=== PATIENT | male | born 1945 | race Caucasian/White ===

== ENCOUNTER 2018-03-24 10:11 | Inpatient (IN) | payer MEDICAID ==
[2018-03-24 11:03] LABS: ADD MAN DIFF? NO
[2018-03-24 11:09] LABS: BASOPHILS % 0.2 % (0.0-2.0); EOSINOPHILS % 0.2 % (0.0-7.0); HEMATOCRIT 31.3 % (42.0-52.0); HEMOGLOBIN 10.1 g/dl (14.0-18.0); LYMPHOCYTES % 14.8 % (15.0-51.0); MEAN CORPUSCULAR HEMOGLOBIN 30.7 pg (29.0-33.0); MEAN CORPUSCULAR HGB CONC 32.3 g/dl (32.0-37.0); MEAN CORPUSCULAR VOLUME 95.1 fl (82.0-101.0); MONOCYTE # 0.7 10^3/ul (0.3-0.9); MONOCYTES % 10.4 % (0.0-11.0); NEUTROPHIL # 4.9 10^3/ul (1.6-7.5); NEUTROPHILS % 74.1 % (39.0-77.0); PLATELET COUNT 197 10^3/UL (140-415); RED BLOOD COUNT 3.29 10^6/ul (4.70-6.10); RED CELL DISTRIBUTION WIDTH 13.5 % (11.5-14.5)
[2018-03-24 11:09] LABS: WHITE BLOOD COUNT 6.6 10^3/ul (4.8-10.8)
[2018-03-24 11:23] LABS: ALANINE AMINOTRANSFERASE 15 IU/L (13-69); ALBUMIN 4.3 g/dl (3.3-4.9); ALKALINE PHOSPHATASE 103 IU/L (42-121); ANION GAP 11 (5-13); ASPARTATE AMINO TRANSFERASE 23 IU/L (15-46); BILIRUBIN,INDIRECT 0.3 mg/dl (0-1.1); BILIRUBIN,TOTAL 0.3 mg/dl (0.2-1.3); BLOOD UREA NITROGEN 20 mg/dl (7-20); CALCIUM 9.4 mg/dl (8.4-10.2); CARBON DIOXIDE 27 mmol/L (21-31); CHLORIDE 101 mmol/L (97-110); CREATININE 0.93 mg/dl (0.61-1.24); GLUCOSE 134 mg/dl (70-220); POTASSIUM 4.5 mmol/L (3.5-5.1); SODIUM 139 mmol/L (135-144); TOTAL PROTEIN 8.2 g/dl (6.1-8.1)
[2018-03-24 11:34] LABS: ADD UMIC YES; TROPONIN-I 0.037 ng/ml (0.000-0.120); UR ASCORBIC ACID NEGATIVE (NEGATIVE); UR BILIRUBIN (Dip) NEGATIVE (NEGATIVE); UR BLOOD (Dip) 2+ mg/dL (NEGATIVE); UR CLARITY CLEAR (CLEAR); UR COLOR YELLOW (YELLOW); UR GLUCOSE (Dip) NEGATIVE (NEGATIVE); UR KETONES (Dip) TRACE mg/dL (NEGATIVE); UR LEUKOCYTE ESTERASE (Dip) NEGATIVE Leu/ul (NEGATIVE); UR NITRITE (Dip) NEGATIVE (NEGATIVE); UR RBC 14 /HPF (0-5); UR SPECIFIC GRAVITY (Dip) 1.013 (1.003-1.030); UR TOTAL PROTEIN (Dip) NEGATIVE (NEGATIVE); UR UROBILINOGEN (Dip) NEGATIVE (NEGATIVE); UR WBC 0 /HPF (0-5)
[2018-03-24 11:44] LABS: INR 1.14; PROTIME 14.7 Sec (11.9-14.9); PT RATIO 1.1
[2018-03-24 11:45] LABS: PARTIAL THROMBOPLASTIN TIME 36.8 Sec (23.0-35.0)
[2018-03-24] MEDS: ASPIRIN 81 MG TAB PO (11:56)
[2018-03-24] MEDS: NITROGLYCERIN 2% 1 GM OINT PKT TD (11:56)
[2018-03-24] MEDS ORDERED: ACETAMINOPHEN 325 MG TAB PO (12:00)
[2018-03-24] MEDS ORDERED: NITROGLYCERIN (SL) 0.4 MG TAB SL ×2 (12:00→15:00)
[2018-03-24] MEDS ORDERED: ONDANSETRON 4 MG INJ IV (12:00)
[2018-03-24 13:57] LABS: HEMOGLOBIN A1C 5.8 % (0-5.9)
[2018-03-24 14:14] LABS: B-TYPE NATRIURETIC PEPTIDE 405 PG/ML (0-125)
[2018-03-24] MEDS ORDERED: NACL 0.9% 3 ML SYG IV (15:00)
[2018-03-24 15:05] LABS: LACTIC ACID 1.1 mmol/L (0.5-2.0)
[2018-03-24] MEDS: ACETAMINOPHEN 325 MG TAB PO (16:04)
[2018-03-24] MEDS: FUROSEMIDE 20 MG INJ IV ×2 (16:46→17:17)
[2018-03-24 16:57] LABS: CREATINE KINASE 84 IU/L (23-200); IRON 18 ug/dl (35-150)
[2018-03-24 17:06] LABS: % IRON SATURATION 7 % SAT (22-52); TOTAL IRON BINDING CAPACITY 243 ug/dl (241-421)
[2018-03-24 17:08] LABS: CK INDEX 4.8
[2018-03-24 17:14] LABS: FREE T4 (FREE THYROXINE) 1.05 ng/dl (0.78-2.44)
[2018-03-24 17:20] LABS: TROPONIN-I 0.489 ng/ml (0.000-0.120)
[2018-03-24] MEDS: TAMSULOSIN (SR) 0.4 MG CAP PO (21:50)
[2018-03-24] MEDS: METOPROLOL 25 MG TAB PO (21:50)
[2018-03-24] MEDS: LISINOPRIL 10 MG TAB PO (21:51)
[2018-03-24] MEDS: TERAZOSIN 5 MG CAP PO (22:17)
[2018-03-24 23:49] LABS: CREATINE KINASE 108 IU/L (23-200)
[2018-03-25 00:15] LABS: CK INDEX 5.1
[2018-03-25 00:21] LABS: CK-MB 5.52 ng/ml (0.0-2.4)
[2018-03-25] MEDS: FUROSEMIDE 20 MG INJ IV ×2 (06:27→18:49)
[2018-03-25] MEDS: HYDROCHLOROTHIAZIDE 12.5 MG CAP PO (06:27)
[2018-03-25 08:09] LABS: ADD MAN DIFF? NO
[2018-03-25 08:13] LABS: WHITE BLOOD COUNT 8.1 10^3/ul (4.8-10.8)
[2018-03-25 08:13] LABS: BASOPHILS % 0.2 % (0.0-2.0); EOSINOPHILS % 0.1 % (0.0-7.0); HEMATOCRIT 31.3 % (42.0-52.0); HEMOGLOBIN 10.2 g/dl (14.0-18.0); LYMPHOCYTES # 1.2 10^3/ul (0.8-2.9); LYMPHOCYTES % 15.3 % (15.0-51.0); MEAN CORPUSCULAR HEMOGLOBIN 30.6 pg (29.0-33.0); MEAN CORPUSCULAR HGB CONC 32.6 g/dl (32.0-37.0); MEAN PLATELET VOLUME 11.1 fl (7.4-10.4); NEUTROPHIL # 5.8 10^3/ul (1.6-7.5); PLATELET COUNT 218 10^3/UL (140-415); RED BLOOD COUNT 3.33 10^6/ul (4.70-6.10); RED CELL DISTRIBUTION WIDTH 13.6 % (11.5-14.5)
[2018-03-25] MEDS: INFLUENZA VIRUS VACCINE 0.5 ML (DISPENSING) IM* (08:38)
[2018-03-25 08:39] LABS: PHOSPHORUS 4.8 mg/dl (2.5-4.9)
[2018-03-25 08:39] LABS: CHOL/HDL RATIO 4.1 RATIO; CHOLESTEROL 180 mg/dl (100-200); HDL CHOLESTEROL 43 mg/dl (31-75); LDL CHOLESTEROL,CALCULATED 115 mg/dl; MAGNESIUM 2.1 mg/dl (1.7-2.5); TRIGLYCERIDES 109 mg/dl (0-149)
[2018-03-25] MEDS: TAMSULOSIN (SR) 0.4 MG CAP PO ×2 (08:39→21:28)
[2018-03-25] MEDS: AMLODIPINE 10 MG TAB PO (08:39)
[2018-03-25] MEDS: ASPIRIN 81 MG TAB PO (08:39)
[2018-03-25] MEDS: LISINOPRIL 10 MG TAB PO ×2 (08:39→21:30)
[2018-03-25] MEDS: METOPROLOL 25 MG TAB PO ×2 (08:39→21:30)
[2018-03-25 08:41] LABS: ALANINE AMINOTRANSFERASE 25 IU/L (13-69); ALBUMIN 4.2 g/dl (3.3-4.9); ALKALINE PHOSPHATASE 105 IU/L (42-121); ANION GAP 11 (5-13); ASPARTATE AMINO TRANSFERASE 44 IU/L (15-46); BILIRUBIN,INDIRECT 0.1 mg/dl (0-1.1); BILIRUBIN,TOTAL 0.1 mg/dl (0.2-1.3); BLOOD UREA NITROGEN 27 mg/dl (7-20); CALCIUM 9.1 mg/dl (8.4-10.2); CARBON DIOXIDE 29 mmol/L (21-31); CHLORIDE 101 mmol/L (97-110); CREATININE 1.06 mg/dl (0.61-1.24); GLUCOSE 131 mg/dl (70-220); SODIUM 141 mmol/L (135-144)
[2018-03-25 08:45] LABS: CREATINE KINASE 100 IU/L (23-200)
[2018-03-25 08:47] LABS: CK INDEX 3.4
[2018-03-25 08:59] LABS: CK-MB 3.35 ng/ml (0.0-2.4)
[2018-03-25] MEDS: REGADENOSON 0.4 MG/5 ML SYG (12:00)
[2018-03-25] MEDS: ENOXAPARIN 80 MG/0.8 ML SYG SC ×2 (13:30→21:32)
[2018-03-25 15:32] LABS: CREATINE KINASE 85 IU/L (23-200)
[2018-03-25 15:43] LABS: CK INDEX 2.3; CK-MB 1.93 ng/ml (0.0-2.4)
[2018-03-25] MEDS: BICALUTAMIDE 50 MG TAB PO (16:01)
[2018-03-25] MEDS: ATORVASTATIN 40 MG TAB PO (21:28)
[2018-03-25] MEDS: TERAZOSIN 5 MG CAP PO (21:29)
[2018-03-26] MEDS: SOD CHLORIDE 0.9% 250 ML IV (02:30)
[2018-03-26 06:19] LABS: ADD MAN DIFF? NO
[2018-03-26 06:21] LABS: BASOPHILS % 0.3 % (0.0-2.0); EOSINOPHILS % 0.3 % (0.0-7.0); HEMATOCRIT 29.5 % (42.0-52.0); HEMOGLOBIN 9.6 g/dl (14.0-18.0); LYMPHOCYTES # 1.5 10^3/ul (0.8-2.9); LYMPHOCYTES % 19.8 % (15.0-51.0); MEAN CORPUSCULAR HEMOGLOBIN 30.9 pg (29.0-33.0); MEAN CORPUSCULAR HGB CONC 32.5 g/dl (32.0-37.0); MEAN CORPUSCULAR VOLUME 94.9 fl (82.0-101.0); MONOCYTE # 0.9 10^3/ul (0.3-0.9); MONOCYTES % 11.6 % (0.0-11.0); NEUTROPHILS % 67.6 % (39.0-77.0); PLATELET COUNT 217 10^3/UL (140-415); RED BLOOD COUNT 3.11 10^6/ul (4.70-6.10); RED CELL DISTRIBUTION WIDTH 13.8 % (11.5-14.5)
[2018-03-26 06:21] LABS: WHITE BLOOD COUNT 7.3 10^3/ul (4.8-10.8)
[2018-03-26] MEDS: FUROSEMIDE 20 MG INJ IV ×2 (06:33→18:14)
[2018-03-26] MEDS: HYDROCHLOROTHIAZIDE 12.5 MG CAP PO (06:34)
[2018-03-26 06:57] LABS: ANION GAP 6 (5-13); BLOOD UREA NITROGEN 39 mg/dl (7-20); CALCIUM 8.5 mg/dl (8.4-10.2); CARBON DIOXIDE 28 mmol/L (21-31); CHLORIDE 103 mmol/L (97-110); CREATININE 1.15 mg/dl (0.61-1.24); GLUCOSE 134 mg/dl (70-220); SODIUM 137 mmol/L (135-144)
[2018-03-26 07:03] LABS: CREATINE KINASE 60 IU/L (23-200)
[2018-03-26 07:04] LABS: CK INDEX 1.3; CK-MB 0.79 ng/ml (0.0-2.4)
[2018-03-26 07:05] LABS: TROPONIN-I 0.808 ng/ml (0.000-0.120)
[2018-03-26 07:25] LABS: MAGNESIUM 2.1 mg/dl (1.7-2.5)
[2018-03-26 07:25] LABS: PHOSPHORUS 4.5 mg/dl (2.5-4.9)
[2018-03-26] MEDS: METOPROLOL 25 MG TAB PO ×2 (08:07→20:37)
[2018-03-26] MEDS: AMLODIPINE 10 MG TAB PO (08:07)
[2018-03-26] MEDS: LISINOPRIL 10 MG TAB PO ×2 (08:07→20:37)
[2018-03-26] MEDS: ASPIRIN 81 MG TAB PO (08:07)
[2018-03-26] MEDS: TAMSULOSIN (SR) 0.4 MG CAP PO ×2 (08:07→20:31)
[2018-03-26] MEDS: BICALUTAMIDE 50 MG TAB PO (08:11)
[2018-03-26] MEDS: TERAZOSIN 5 MG CAP PO (20:36)
[2018-03-26] MEDS: ATORVASTATIN 40 MG TAB PO (20:36)
[2018-03-27 06:00] LABS: ADD MAN DIFF? NO
[2018-03-27] MEDS: HYDROCHLOROTHIAZIDE 12.5 MG CAP PO (06:00)
[2018-03-27] MEDS: FUROSEMIDE 20 MG INJ IV ×2 (06:00→18:11)
[2018-03-27 06:10] LABS: WHITE BLOOD COUNT 7.6 10^3/ul (4.8-10.8)
[2018-03-27 06:10] LABS: BASOPHILS % 0.3 % (0.0-2.0); EOSINOPHILS # 0.2 10^3/ul (0.0-0.5); EOSINOPHILS % 2.6 % (0.0-7.0); HEMATOCRIT 29.7 % (42.0-52.0); HEMOGLOBIN 9.9 g/dl (14.0-18.0); LYMPHOCYTES # 1.4 10^3/ul (0.8-2.9); LYMPHOCYTES % 18.8 % (15.0-51.0); MEAN CORPUSCULAR HGB CONC 33.3 g/dl (32.0-37.0); MEAN CORPUSCULAR VOLUME 93.1 fl (82.0-101.0); MEAN PLATELET VOLUME 10.8 fl (7.4-10.4); MONOCYTE # 0.9 10^3/ul (0.3-0.9); MONOCYTES % 11.7 % (0.0-11.0); NEUTROPHILS % 66.2 % (39.0-77.0); PLATELET COUNT 246 10^3/UL (140-415); RED BLOOD COUNT 3.19 10^6/ul (4.70-6.10); RED CELL DISTRIBUTION WIDTH 13.5 % (11.5-14.5)
[2018-03-27 06:47] LABS: MAGNESIUM 2.6 mg/dl (1.7-2.5)
[2018-03-27 06:58] LABS: ALANINE AMINOTRANSFERASE 48 IU/L (13-69); ALBUMIN 3.9 g/dl (3.3-4.9); ALBUMIN/GLOBULIN RATIO 1.02; ALKALINE PHOSPHATASE 111 IU/L (42-121); ANION GAP 13 (5-13); ASPARTATE AMINO TRANSFERASE 50 IU/L (15-46); BILIRUBIN,INDIRECT 0.1 mg/dl (0-1.1); BILIRUBIN,TOTAL 0.1 mg/dl (0.2-1.3); BLOOD UREA NITROGEN 50 mg/dl (7-20); CALCIUM 8.7 mg/dl (8.4-10.2); CARBON DIOXIDE 27 mmol/L (21-31); CHLORIDE 99 mmol/L (97-110); GLUCOSE 132 mg/dl (70-220); POTASSIUM 4.3 mmol/L (3.5-5.1); SODIUM 139 mmol/L (135-144); TOTAL PROTEIN 7.7 g/dl (6.1-8.1)
[2018-03-27] MEDS: LISINOPRIL 10 MG TAB PO ×2 (09:20→22:06)
[2018-03-27] MEDS: ASPIRIN 81 MG TAB PO (09:20)
[2018-03-27] MEDS: AMLODIPINE 10 MG TAB PO (09:20)
[2018-03-27] MEDS: TAMSULOSIN (SR) 0.4 MG CAP PO ×2 (09:21→20:37)
[2018-03-27] MEDS: METOPROLOL 25 MG TAB PO ×2 (09:21→20:39)
[2018-03-27] MEDS: BICALUTAMIDE 50 MG TAB PO (12:14)
[2018-03-27 20:02] LABS: OCCULT BLOOD STOOL NEGATIVE (NEGATIVE)
[2018-03-27] MEDS: ATORVASTATIN 40 MG TAB PO (20:37)
[2018-03-27] MEDS: SENNA/DOCUSATE NA (8.6MG/50MG) TAB PO (20:44)
[2018-03-27] MEDS: ACETAMINOPHEN 325 MG TAB PO (20:51)
[2018-03-27] MEDS: TERAZOSIN 5 MG CAP PO (22:06)
[2018-03-28] MEDS: HYDROCHLOROTHIAZIDE 12.5 MG CAP PO (06:01)
[2018-03-28] MEDS: FUROSEMIDE 20 MG INJ IV (06:01)
[2018-03-28 06:52] LABS: ADD MAN DIFF? NO
[2018-03-28 06:54] LABS: BASOPHILS % 0.3 % (0.0-2.0); EOSINOPHILS # 0.4 10^3/ul (0.0-0.5); EOSINOPHILS % 5.4 % (0.0-7.0); HEMATOCRIT 30.2 % (42.0-52.0); HEMOGLOBIN 9.8 g/dl (14.0-18.0); LYMPHOCYTES # 1.5 10^3/ul (0.8-2.9); MEAN CORPUSCULAR HEMOGLOBIN 30.4 pg (29.0-33.0); MEAN CORPUSCULAR HGB CONC 32.5 g/dl (32.0-37.0); MEAN CORPUSCULAR VOLUME 93.8 fl (82.0-101.0); MEAN PLATELET VOLUME 10.8 fl (7.4-10.4); MONOCYTE # 0.9 10^3/ul (0.3-0.9); MONOCYTES % 11.9 % (0.0-11.0); NEUTROPHIL # 4.6 10^3/ul (1.6-7.5); NEUTROPHILS % 62.1 % (39.0-77.0); PLATELET COUNT 257 10^3/UL (140-415); RED BLOOD COUNT 3.22 10^6/ul (4.70-6.10); RED CELL DISTRIBUTION WIDTH 13.6 % (11.5-14.5)
[2018-03-28 06:54] LABS: WHITE BLOOD COUNT 7.4 10^3/ul (4.8-10.8)
[2018-03-28 07:16] LABS: ALANINE AMINOTRANSFERASE 57 IU/L (13-69); ALBUMIN 3.8 g/dl (3.3-4.9); ALBUMIN/GLOBULIN RATIO 0.97; ALKALINE PHOSPHATASE 104 IU/L (42-121); ANION GAP 7 (5-13); ASPARTATE AMINO TRANSFERASE 49 IU/L (15-46); BILIRUBIN,INDIRECT 0.1 mg/dl (0-1.1); BILIRUBIN,TOTAL 0.1 mg/dl (0.2-1.3); BLOOD UREA NITROGEN 62 mg/dl (7-20); CALCIUM 8.6 mg/dl (8.4-10.2); CARBON DIOXIDE 28 mmol/L (21-31); CHLORIDE 102 mmol/L (97-110); CREATININE 1.34 mg/dl (0.61-1.24); GLUCOSE 130 mg/dl (70-220); POTASSIUM 4.3 mmol/L (3.5-5.1); SODIUM 137 mmol/L (135-144); TOTAL PROTEIN 7.7 g/dl (6.1-8.1)
[2018-03-28 07:31] LABS: MAGNESIUM 2.7 mg/dl (1.7-2.5)
[2018-03-28] MEDS: AMLODIPINE 10 MG TAB PO (08:58)
[2018-03-28] MEDS: TAMSULOSIN (SR) 0.4 MG CAP PO (08:58)
[2018-03-28] MEDS: ASPIRIN 81 MG TAB PO (08:58)
[2018-03-28] MEDS: LISINOPRIL 10 MG TAB PO (08:58)
[2018-03-28] MEDS: METOPROLOL 25 MG TAB PO (08:59)
[2018-03-28] MEDS: BICALUTAMIDE 50 MG TAB PO (09:02)
[2018-03-28] MEDS: ACETAMINOPHEN 325 MG TAB PO (11:46)
[2018-03-28] MEDS: ONDANSETRON 4 MG INJ IV (11:46)
== END 2018-03-28 17:24 | disposition home health service (06) | DRG 280 ==
LOC: E/R 10:11 → TEL 11:47
PROC: 3E0234Z Introduction of Serum, Toxoid and Vaccine into Muscle, Percutaneous Approach (ICD-10-PCS; principal; 2018-03-25)
DX: I21.4 Non-ST elevation (NSTEMI) myocardial infarction (principal); I50.23 Acute on chronic systolic (congestive) heart failure; C77.9 Secondary and unspecified malignant neoplasm of lymph node, unspecified; C78.00 Secondary malignant neoplasm of unspecified lung; C79.51 Secondary malignant neoplasm of bone; I13.0 Hypertensive heart and chronic kidney disease with heart failure and stage 1 through stage 4 chronic kidney disease, or unspecified chronic kidney disease; C61 Malignant neoplasm of prostate; D64.9 Anemia, unspecified; Z23 Encounter for immunization; I35.0 Nonrheumatic aortic (valve) stenosis; N40.1 Benign prostatic hyperplasia with lower urinary tract symptoms; R33.8 Other retention of urine; I25.5 Ischemic cardiomyopathy; N18.9 Chronic kidney disease, unspecified; Z79.82 Long term (current) use of aspirin; Z87.891 Personal history of nicotine dependence; Z89.012 Acquired absence of left thumb
CPT/HCPCS: 36415; 71045; 74176; 78306; 78452; 80048; 80053; 80061; 81001; 82270; 82550; 82553; 82728; 83036; 83540; 83605; 83735; 83880; 84100; 84153; 84154; 84439; 84443; 84484; 85025; 85610; 85730; 87040; 87045; 87086; 90686; 93005; 93017; 93306; 99285-25; A9503; G0378

== ENCOUNTER 2018-05-21 00:09 | Inpatient (IN) | payer MEDICAID ==
[2018-05-21 00:33] LABS: ADD MAN DIFF? NO
[2018-05-21 00:39] LABS: WHITE BLOOD COUNT 13.7 10^3/ul (4.8-10.8)
[2018-05-21 00:39] LABS: BASOPHILS % 0.1 % (0.0-2.0); EOSINOPHILS % 0.1 % (0.0-7.0); HEMATOCRIT 31.3 % (42.0-52.0); HEMOGLOBIN 10.2 g/dl (14.0-18.0); LYMPHOCYTES % 7.2 % (15.0-51.0); MEAN CORPUSCULAR HEMOGLOBIN 29.8 pg (29.0-33.0); MEAN CORPUSCULAR HGB CONC 32.6 g/dl (32.0-37.0); MEAN CORPUSCULAR VOLUME 91.5 fl (82.0-101.0); MEAN PLATELET VOLUME 9.9 fl (7.4-10.4); MONOCYTES % 7.3 % (0.0-11.0); NEUTROPHIL # 11.6 10^3/ul (1.6-7.5); NEUTROPHILS % 84.8 % (39.0-77.0); PLATELET COUNT 257 10^3/UL (140-415); RED BLOOD COUNT 3.42 10^6/ul (4.70-6.10); RED CELL DISTRIBUTION WIDTH 13.6 % (11.5-14.5)
[2018-05-21] MEDS: ASPIRIN 81 MG TAB PO (00:48)
[2018-05-21] MEDS: LEVOFLOXACIN 750MG/D5W (PMX) 150 ML IVPB ×2 (00:48→23:12)
[2018-05-21] MEDS: SODIUM CHLORIDE 0.9% 1L BAG IV* (00:48)
[2018-05-21 00:58] LABS: PROTIME 14.3 Sec (11.9-14.9); PT RATIO 1.1
[2018-05-21 01:01] LABS: ANION GAP 14 (5-13); BLOOD UREA NITROGEN 17 mg/dl (7-20); CALCIUM 8.6 mg/dl (8.4-10.2); CARBON DIOXIDE 23 mmol/L (21-31); CHLORIDE 98 mmol/L (97-110); CREATININE 0.78 mg/dl (0.61-1.24); GLUCOSE 134 mg/dl (70-220); SODIUM 135 mmol/L (135-144)
[2018-05-21 01:13] LABS: B-TYPE NATRIURETIC PEPTIDE 520 PG/ML (0-125)
[2018-05-21 01:18] LABS: TROPONIN-I 0.195 ng/ml (0.000-0.120)
[2018-05-21] MEDS ORDERED: ONDANSETRON 4 MG INJ IV ×2 (01:30)
[2018-05-21] MEDS ORDERED: NACL 0.9% 3 ML SYG IV (01:30)
[2018-05-21] MEDS ORDERED: ACETAMINOPHEN 325 MG TAB PO ×2 (01:30)
[2018-05-21] MEDS ORDERED: DOCUSATE SODIUM 100 MG CAP PO (01:30)
[2018-05-21] MEDS: SOD CHLORIDE 0.9% 1,000 ML IV ×2 (02:17→13:07)
[2018-05-21] MEDS: ENOXAPARIN 80 MG/0.8 ML SYG SC (02:17)
[2018-05-21 02:38] LABS: ADD UMIC YES; UR ASCORBIC ACID NEGATIVE (NEGATIVE); UR BACTERIA FEW /HPF (NONE SEEN); UR BILIRUBIN (Dip) NEGATIVE (NEGATIVE); UR BLOOD (Dip) 2+ mg/dL (NEGATIVE); UR CLARITY SLIGHTLY CLOUDY (CLEAR); UR COLOR STRAW (YELLOW); UR GLUCOSE (Dip) NEGATIVE (NEGATIVE); UR KETONES (Dip) NEGATIVE (NEGATIVE); UR LEUKOCYTE ESTERASE (Dip) 3+ Leu/ul (NEGATIVE); UR NITRITE (Dip) POSITIVE (NEGATIVE); UR RBC 1 /HPF (0-5); UR SPECIFIC GRAVITY (Dip) 1.003 (1.003-1.030); UR TOTAL PROTEIN (Dip) NEGATIVE (NEGATIVE); UR UROBILINOGEN (Dip) NEGATIVE (NEGATIVE); UR WBC 72 /HPF (0-5)
[2018-05-21 06:24] LABS: ADD MAN DIFF? NO
[2018-05-21 06:33] LABS: WHITE BLOOD COUNT 12.1 10^3/ul (4.8-10.8)
[2018-05-21 06:33] LABS: BASOPHILS % 0.2 % (0.0-2.0); HEMATOCRIT 28.8 % (42.0-52.0); HEMOGLOBIN 9.4 g/dl (14.0-18.0); LYMPHOCYTES # 1.4 10^3/ul (0.8-2.9); LYMPHOCYTES % 11.4 % (15.0-51.0); MEAN CORPUSCULAR HEMOGLOBIN 29.7 pg (29.0-33.0); MEAN CORPUSCULAR HGB CONC 32.6 g/dl (32.0-37.0); MEAN CORPUSCULAR VOLUME 91.1 fl (82.0-101.0); MEAN PLATELET VOLUME 10.7 fl (7.4-10.4); MONOCYTE # 0.8 10^3/ul (0.3-0.9); NEUTROPHIL # 9.8 10^3/ul (1.6-7.5); NEUTROPHILS % 80.9 % (39.0-77.0); PLATELET COUNT 221 10^3/UL (140-415); RED BLOOD COUNT 3.16 10^6/ul (4.70-6.10); RED CELL DISTRIBUTION WIDTH 13.7 % (11.5-14.5)
[2018-05-21 07:14] LABS: CK INDEX 12.1; CREATINE KINASE 683 IU/L (23-200)
[2018-05-21 08:22] LABS: ALANINE AMINOTRANSFERASE 38 IU/L (13-69); ALBUMIN 3.4 g/dl (3.3-4.9); ALBUMIN/GLOBULIN RATIO 1.13; ALKALINE PHOSPHATASE 69 IU/L (42-121); ANION GAP 12 (5-13); ASPARTATE AMINO TRANSFERASE 94 IU/L (15-46); BILIRUBIN,INDIRECT 0.5 mg/dl (0-1.1); BILIRUBIN,TOTAL 0.5 mg/dl (0.2-1.3); BLOOD UREA NITROGEN 15 mg/dl (7-20); CALCIUM 8.3 mg/dl (8.4-10.2); CARBON DIOXIDE 22 mmol/L (21-31); CHLORIDE 104 mmol/L (97-110); CREATININE 0.68 mg/dl (0.61-1.24); GLUCOSE 117 mg/dl (70-220); POTASSIUM 3.9 mmol/L (3.5-5.1); SODIUM 138 mmol/L (135-144); TOTAL PROTEIN 6.4 g/dl (6.1-8.1)
[2018-05-21 08:59] LABS: HEMOGLOBIN A1C 6.1 % (0-5.9)
[2018-05-21] MEDS: ASPIRIN (EC) 81 MG TAB PO (09:28)
[2018-05-21] MEDS: LISINOPRIL 10 MG TAB PO ×2 (09:28→20:44)
[2018-05-21] MEDS: morphine 2 MG INJ IV ×3 (10:21→23:30)
[2018-05-21 12:49] LABS: CREATINE KINASE 982 IU/L (23-200)
[2018-05-21 13:00] LABS: CK INDEX 10.9
[2018-05-21] MEDS ORDERED: ENOXAPARIN 100 MG/ML SYG SC (13:00)
[2018-05-21] MEDS: ENOXAPARIN 100 MG/ML SYG SC (13:14)
[2018-05-21 16:14] LABS: ADD MAN DIFF? NO; BASOPHILS % 0.2 % (0.0-2.0); HEMATOCRIT 30.8 % (42.0-52.0); HEMOGLOBIN 10.1 g/dl (14.0-18.0); LYMPHOCYTES # 0.7 10^3/ul (0.8-2.9); LYMPHOCYTES % 5.7 % (15.0-51.0); MEAN CORPUSCULAR HEMOGLOBIN 30.1 pg (29.0-33.0); MEAN CORPUSCULAR HGB CONC 32.8 g/dl (32.0-37.0); MEAN CORPUSCULAR VOLUME 91.9 fl (82.0-101.0); MEAN PLATELET VOLUME 10.1 fl (7.4-10.4); MONOCYTE # 0.8 10^3/ul (0.3-0.9); MONOCYTES % 6.1 % (0.0-11.0); NEUTROPHIL # 10.9 10^3/ul (1.6-7.5); NEUTROPHILS % 87.2 % (39.0-77.0); PLATELET COUNT 213 10^3/UL (140-415); RED BLOOD COUNT 3.35 10^6/ul (4.70-6.10); RED CELL DISTRIBUTION WIDTH 13.8 % (11.5-14.5)
[2018-05-21 16:14] LABS: WHITE BLOOD COUNT 12.5 10^3/ul (4.8-10.8)
[2018-05-21 16:31] LABS: CREATINE KINASE 890 IU/L (23-200)
[2018-05-21 16:34] LABS: INR 1.28; PROTIME 16.1 Sec (11.9-14.9); PT RATIO 1.3
[2018-05-21 16:36] LABS: PARTIAL THROMBOPLASTIN TIME 55.7 Sec (23.0-35.0)
[2018-05-21 16:40] LABS: CK INDEX 8.4
[2018-05-21] MEDS: TERAZOSIN 5 MG CAP PO (20:43)
[2018-05-21] MEDS: ATORVASTATIN 40 MG TAB PO (20:43)
[2018-05-21] MEDS: TAMSULOSIN (SR) 0.4 MG CAP PO (20:43)
[2018-05-21] MEDS: METOPROLOL 25 MG TAB PO (20:44)
[2018-05-21] MEDS ORDERED: HEPARIN 1000 UNITS/ML 10 ML INJ IV (22:00)
[2018-05-21] MEDS: HEPARIN 1000 UNITS/ML 10 ML INJ IV (22:10)
[2018-05-21] MEDS: HEPARIN 25000 UNITS/250 ML 250 ML IV (22:10)
[2018-05-22 00:12] LABS: AADO2 Arterial 179.6 mmHg (7.0-24.0); Allen Test ACCEPTAB; Arterial Blood Gas Oxygen Sat 81.5 mmHG (95.0-100.0); Arterial COHb 0.2 % (0.0-3.0); Arterial Fraction of Oxyhgb 81.1 % (93.0-99.0); Arterial HCO3 20.7 mmol/L (22.0-26.0); Arterial MetHb 0.3 % (0.0-1.5); Arterial pCO2 28.7 mmhg (35-45); MODE NASAL CANNULA; Site Right Radial
[2018-05-22] MEDS: FUROSEMIDE 40 MG INJ IV (00:13)
[2018-05-22] MEDS: NITROGLYCERIN (SL) 0.4 MG TAB SL (00:19)
[2018-05-22 01:00] LABS: CREATINE KINASE 982 IU/L (23-200)
[2018-05-22] MEDS ORDERED: NITROGLYCERIN 0.3 MG/HR PATCH TRANSDERM (01:00)
[2018-05-22 01:13] LABS: CK INDEX 8.2
[2018-05-22] MEDS: NITROGLYCERIN 2% 1 GM OINT PKT TD ×3 (01:23→14:00)
[2018-05-22 02:23] LABS: AADO2 Arterial 445.4 mmHg (7.0-24.0); Allen Test ACCEPTAB; Arterial Base Excess -0.4 mmol/L (-3.0-3); Arterial Blood Gas Oxygen Sat 98.9 mmHG (95.0-100.0); Arterial COHb 0.1 % (0.0-3.0); Arterial Fraction of Oxyhgb 98.8 % (93.0-99.0); Arterial HCO3 21.7 mmol/L (22.0-26.0); Arterial MetHb 0 % (0.0-1.5); Arterial pCO2 27.2 mmhg (35-45); MODE HFNC; Site Right Radial
[2018-05-22 05:30] LABS: ADD MAN DIFF? NO
[2018-05-22 05:40] LABS: WHITE BLOOD COUNT 9.6 10^3/ul (4.8-10.8)
[2018-05-22 05:40] LABS: BASOPHILS % 0.2 % (0.0-2.0); HEMATOCRIT 27.8 % (42.0-52.0); HEMOGLOBIN 9.1 g/dl (14.0-18.0); LYMPHOCYTES # 0.8 10^3/ul (0.8-2.9); LYMPHOCYTES % 7.9 % (15.0-51.0); MEAN CORPUSCULAR HEMOGLOBIN 29.9 pg (29.0-33.0); MEAN CORPUSCULAR HGB CONC 32.7 g/dl (32.0-37.0); MEAN CORPUSCULAR VOLUME 91.4 fl (82.0-101.0); MEAN PLATELET VOLUME 10.8 fl (7.4-10.4); MONOCYTE # 0.7 10^3/ul (0.3-0.9); MONOCYTES % 7.1 % (0.0-11.0); NEUTROPHIL # 8.1 10^3/ul (1.6-7.5); NEUTROPHILS % 84.2 % (39.0-77.0); PLATELET COUNT 192 10^3/UL (140-415); RED BLOOD COUNT 3.04 10^6/ul (4.70-6.10); RED CELL DISTRIBUTION WIDTH 13.8 % (11.5-14.5)
[2018-05-22 05:53] LABS: INR 1.27; PT RATIO 1.3
[2018-05-22] MEDS: DIPHENHYDRAMINE 50 MG CAP PO (06:00)
[2018-05-22] MEDS: DIAZEPAM 5 MG TAB PO (06:00)
[2018-05-22 06:01] LABS: PARTIAL THROMBOPLASTIN TIME 79.3 Sec (23.0-35.0)
[2018-05-22 06:11] LABS: ALANINE AMINOTRANSFERASE 45 IU/L (13-69); ALBUMIN 3.1 g/dl (3.3-4.9); ALBUMIN/GLOBULIN RATIO 1.06; ALKALINE PHOSPHATASE 64 IU/L (42-121); ANION GAP 10 (5-13); ASPARTATE AMINO TRANSFERASE 202 IU/L (15-46); BILIRUBIN,INDIRECT 0.3 mg/dl (0-1.1); BILIRUBIN,TOTAL 0.3 mg/dl (0.2-1.3); BLOOD UREA NITROGEN 21 mg/dl (7-20); CALCIUM 8.1 mg/dl (8.4-10.2); CARBON DIOXIDE 23 mmol/L (21-31); CHLORIDE 102 mmol/L (97-110); CREATININE 0.93 mg/dl (0.61-1.24); GLUCOSE 143 mg/dl (70-220); POTASSIUM 4.1 mmol/L (3.5-5.1); SODIUM 135 mmol/L (135-144)
[2018-05-22 06:12] LABS: CREATINE KINASE 1184 IU/L (23-200)
[2018-05-22 06:13] LABS: CK INDEX 8.9
[2018-05-22] MEDS: ALBUMIN HUMAN 25% 100 ML IV ×4 (06:43→22:31)
[2018-05-22] MEDS: ASPIRIN (EC) 81 MG TAB PO (08:00)
[2018-05-22] MEDS: TAMSULOSIN (SR) 0.4 MG CAP PO ×2 (08:00→20:52)
[2018-05-22] MEDS: AMLODIPINE 10 MG TAB PO (08:01)
[2018-05-22] MEDS: METOPROLOL 25 MG TAB PO (08:01)
[2018-05-22] MEDS: LISINOPRIL 10 MG TAB PO (08:02)
[2018-05-22] MEDS: BICALUTAMIDE 50 MG TAB PO (09:00)
[2018-05-22] MEDS ORDERED: IODIXANOL LOCM 100 ML BTL (09:35)
[2018-05-22] MEDS ORDERED: MIDAZOLAM 1 MG/ML 2 ML INJ (09:35)
[2018-05-22] MEDS ORDERED: NITROGLYCERIN (IC) 100 MCG/ML INJ (09:35)
[2018-05-22] MEDS ORDERED: LIDOCAINE 1% (MDV) 20 ML INJ (09:35)
[2018-05-22] MEDS ORDERED: FENTAnyl 50 MCG/ML VIAL (09:35)
[2018-05-22] MEDS ORDERED: HEPARIN 1000 UNITS/ML 10 ML INJ ×8 (09:35→15:15)
[2018-05-22] MEDS ORDERED: VERAPAMIL 5 MG INJ (09:35)
[2018-05-22] MEDS ORDERED: SOD CHLORIDE 0.9% 500 ML (09:36)
[2018-05-22] MEDS ORDERED: FUROSEMIDE 40 MG INJ (10:30)
[2018-05-22] MEDS ORDERED: SOD CHLORIDE 0.9% 1,000 ML IV (10:59)
[2018-05-22] MEDS ORDERED: MILRINONE LACTATE 20 MG/D5W 100 ML BAG (11:00)
[2018-05-22] MEDS: ASPIRIN 600 MG SUPP PR (11:00)
[2018-05-22] MEDS: HEPARIN (10000 UNITS/ML) 10,000 UNIT, MILRINONE LACTATE 10 MG in SOD CHLORIDE 0.9% 1,00... SC (11:00)
[2018-05-22] MEDS ORDERED: ACETAMINOPHEN 325 MG TAB PO (11:00)
[2018-05-22] MEDS: INSULIN HUMAN REGULAR 100 UNIT in SOD CHLORIDE 0.9% 99 ML IVPB (11:00)
[2018-05-22] MEDS: MILRINONE LACTATE 2 MG in SOD CHLORIDE 0.9% 50 ML IV (11:00)
[2018-05-22] MEDS ORDERED: DOPamine-D5W 1.6 MG/ML 250 ML (11:00)
[2018-05-22] MEDS ORDERED: NITROGLYCERIN 50 MG/D5W 250 ML BTL (11:00)
[2018-05-22] MEDS ORDERED: AL HYDROX/MG HYDROX/SIMETH 30 ML CUP PO (11:00)
[2018-05-22] MEDS: PHENYLephrine 20MG IN 250 ML 250 ML IV ×3 (11:00→21:36)
[2018-05-22] MEDS ORDERED: OXYCODONE/ACETAMINOPHEN (5/325) TAB PO ×2 (11:00→17:30)
[2018-05-22] MEDS ORDERED: ONDANSETRON 4 MG INJ IV ×2 (11:00→17:30)
[2018-05-22] MEDS: EPINEPHrine 4 MG in DEXTROSE 5% 246 ML IV (11:00)
[2018-05-22] MEDS: NORepinephrine 8MG/250 ML (PMX 250 ML IV (11:00)
[2018-05-22] MEDS ORDERED: INSULIN REGULAR, HUMAN 100 UNIT/1 ML 3ML VIAL (11:00)
[2018-05-22] MEDS ORDERED: MIDAZOLAM 5 ML ×2 (11:14→13:41)
[2018-05-22] MEDS ORDERED: VANCOMYCIN IV PER PHARMACY XX (11:30)
[2018-05-22 11:31] LABS: PARTIAL THROMBOPLASTIN TIME 43.1 Sec (23.0-35.0)
[2018-05-22] MEDS ORDERED: PHENYLephrine (100 MCG/ML) 10ML SYG (11:47)
[2018-05-22] MEDS ORDERED: CA CHLORIDE 10% 10 ML SYRINGE (11:53)
[2018-05-22] MEDS ORDERED: LIDOCAINE 100 MG SYRINGE (11:53)
[2018-05-22] MEDS ORDERED: ALBUMIN HUMAN 25% 100 ML (11:53)
[2018-05-22] MEDS ORDERED: NA BICARBONATE 8.4% 50 ML SYG ×2 (11:53→15:15)
[2018-05-22] MEDS ORDERED: PHENYLephrine 10 MG INJ (11:53)
[2018-05-22] MEDS ORDERED: MAGNESIUM SULFATE (MG) 50% 10 ML INJ (11:53)
[2018-05-22] MEDS ORDERED: AMINOCAPROIC ACID 5 GM INJ (11:53)
[2018-05-22] MEDS ORDERED: MANNITOL 20% 500 ML ×2 (11:53→13:08)
[2018-05-22] MEDS ORDERED: NORepinephrine 4 MG INJ (11:54)
[2018-05-22] MEDS ORDERED: FUROSEMIDE 20 MG INJ ×2 (11:54→16:38)
[2018-05-22] MEDS ORDERED: POTASSIUM CHLORIDE 40 MEQ INJ (11:54)
[2018-05-22] MEDS ORDERED: CEFAZOLIN 1 GM INJ ×2 (12:07→15:37)
[2018-05-22] MEDS: VANCOMYCIN 1 GM INJ ×2 (13:06→13:07)
[2018-05-22] MEDS: HEPARIN 1000 UNITS/ML 10 ML INJ (13:06)
[2018-05-22] MEDS: POLYMYXIN/BACITRACIN 1L IRRIG IRR (13:08)
[2018-05-22] MEDS: PAPAVERINE 60 MG INJ (13:08)
[2018-05-22 15:58] LABS: IMMEDIATE SPIN CROSSMATCH 1 6
[2018-05-22] MEDS ORDERED: PROTAMINE 250 MG INJ (16:28)
[2018-05-22 16:36] LABS: TYPE AND SCREEN 1
[2018-05-22] MEDS ORDERED: ETOMIDATE 20 MG INJ (17:07)
[2018-05-22] MEDS ORDERED: LIDOCAINE 2% (SDV) 5 ML INJ (17:07)
[2018-05-22] MEDS ORDERED: ROCURONIUM 50 MG INJ (17:07)
[2018-05-22] MEDS ORDERED: HYDROmorphONE 0.5 MG/0.5 ML SYG IV (17:30)
[2018-05-22] MEDS ORDERED: NITROGLYCERIN 50 MG/D5W (PMX) 250 ML IV ×2 (17:30→18:00)
[2018-05-22] MEDS ORDERED: DEXTROSE 50% 50 ML SYRINGE IV ×2 (17:30)
[2018-05-22] MEDS ORDERED: MAGNESIUM SULFATE 1 GM/D5W 100 ML IVPB (17:30)
[2018-05-22 17:55] LABS: ADD MAN DIFF? NO
[2018-05-22 18:16] LABS: ANION GAP 13 (5-13); BLOOD UREA NITROGEN 23 mg/dl (7-20); CALCIUM 8.4 mg/dl (8.4-10.2); CARBON DIOXIDE 27 mmol/L (21-31); CHLORIDE 102 mmol/L (97-110); CREATININE 1.04 mg/dl (0.61-1.24); GLUCOSE 116 mg/dl (70-220); MAGNESIUM 2.9 mg/dl (1.7-2.5); POTASSIUM 3.4 mmol/L (3.5-5.1); SODIUM 142 mmol/L (135-144)
[2018-05-22 18:18] LABS: ABNORMAL IP MESSAGE 1; BASOPHILS % 0.2 % (0.0-2.0); HEMATOCRIT 26.5 % (42.0-52.0); LYMPHOCYTES # 0.6 10^3/ul (0.8-2.9); LYMPHOCYTES % 4.7 % (15.0-51.0); MEAN CORPUSCULAR HEMOGLOBIN 30.2 pg (29.0-33.0); MEAN CORPUSCULAR VOLUME 88.9 fl (82.0-101.0); MEAN PLATELET VOLUME 10.1 fl (7.4-10.4); MONOCYTES % 8.2 % (0.0-11.0); NEUTROPHIL # 10.9 10^3/ul (1.6-7.5); NEUTROPHILS % 85.9 % (39.0-77.0); PLATELET COUNT 142 10^3/UL (140-415); POSITIVE DIFF @See below; RED BLOOD COUNT 2.98 10^6/ul (4.70-6.10); RED CELL DISTRIBUTION WIDTH 14.6 % (11.5-14.5)
[2018-05-22 18:18] LABS: WHITE BLOOD COUNT 12.6 10^3/ul (4.8-10.8)
[2018-05-22 18:54] LABS: INR 1.35; PARTIAL THROMBOPLASTIN TIME 29.7 Sec (23.0-35.0); PROTIME 16.8 Sec (11.9-14.9); PT RATIO 1.3
[2018-05-22] MEDS: ACCU-CHEK XX ×5 (19:00→23:02)
[2018-05-22] MEDS: POTASSIUM CHLORIDE 40 MEQ, CALCIUM CHLORIDE 10% 1 GM in DEXTROSE 5%-0.225% NACL 1,000 ML IV (19:05)
[2018-05-22] MEDS: PROPOFOL 100 ML IV (19:30)
[2018-05-22] MEDS: CEFAZOLIN 1 GM/50 ML (PMX) 50 ML IVPB (19:38)
[2018-05-22] MEDS: MIDAZOLAM (DRIP) 50 mg/50 mL 50 ML IV (19:49)
[2018-05-22] MEDS: FAMOTIDINE 20 MG INJ IV (20:46)
[2018-05-22] MEDS: MEROPENEM 1 GM/50ML(PMX) 50 ML IVPB (20:48)
[2018-05-22] MEDS: FAMOTIDINE 20 MG TAB PO (20:51)
[2018-05-22] MEDS: ATORVASTATIN 40 MG TAB PO (20:52)
[2018-05-22] MEDS: POTASSIUM CHLORIDE 50 ML IVPB ×3 (21:20→23:42)
[2018-05-22 21:24] LABS: MODE VENT - AC; MetHgb Mixed Venous 0.3 %; Mixed Venous COHb 0.3 %; Mixed Venous Fraction OxyHgb 62.9 %; Mixed Venous Oxygen Sat 63.3 mmHG (65.0-75.0); Mixed Venous Total Hemglobin 8.3 g/dl; Sample Type BLMV; Site A-Line
[2018-05-22 21:27] LABS: AADO2 Arterial 201.7 mmHg (7.0-24.0); Arterial Base Excess 1.4 mmol/L (-3.0-3); Arterial COHb 0.3 % (0.0-3.0); Arterial Fraction of Oxyhgb 98.4 % (93.0-99.0); Arterial MetHb 0.3 % (0.0-1.5); Arterial pCO2 35.6 mmhg (35-45); MODE VENT - AC; Site A-Line
[2018-05-22] MEDS: VANCOMYCIN HCL 1.25 GM in SOD CHLORIDE 0.9% 250 ML IVPB (21:33)
[2018-05-22] MEDS: INSULIN HUMAN REGULAR 100 UNIT in SOD CHLORIDE 0.9% 99 ML IV (22:49)
[2018-05-22] MEDS ORDERED: ALBUMIN HUMAN 5% 250 ML (22:56)
[2018-05-22] MEDS ORDERED: ALBUMIN HUMAN 5% 250 ML IV ×2 (23:00)
[2018-05-22] MEDS ORDERED: ALBUMIN HUMAN 25% 250 ML IV (23:00)
[2018-05-22] MEDS: PHENYLephrine 40 MG in DEXTROSE 5% 246 ML IV (23:45)
[2018-05-23] MEDS: ACCU-CHEK XX ×24 (00:04→23:00)
[2018-05-23] MEDS ORDERED: ALBUMIN HUMAN 5% 250 ML (00:36)
[2018-05-23] MEDS: PHENYLephrine 40 MG in DEXTROSE 5% 246 ML IV ×5 (00:58→12:57)
[2018-05-23] MEDS: DOPamine-D5W 1.6 MG/ML 250 ML IV (01:31)
[2018-05-23] MEDS: CEFAZOLIN 1 GM/50 ML (PMX) 50 ML IVPB ×2 (01:33→11:50)
[2018-05-23] MEDS: ALBUMIN HUMAN 5% 250 ML IV ×2 (01:37→22:36)
[2018-05-23] MEDS: MIDAZOLAM (DRIP) 50 mg/50 mL 50 ML IV ×3 (03:04→23:15)
[2018-05-23] MEDS: PROPOFOL 100 ML IV ×2 (04:17→17:14)
[2018-05-23 05:10] LABS: AADO2 Arterial 104.6 mmHg (7.0-24.0); Arterial Blood Gas Oxygen Sat 98.2 mmHG (95.0-100.0); Arterial COHb 0.3 % (0.0-3.0); Arterial Fraction of Oxyhgb 97.9 % (93.0-99.0); Arterial HCO3 26.4 mmol/L (22.0-26.0); Arterial MetHb 0 % (0.0-1.5); Arterial pCO2 35.4 mmhg (35-45); MODE VENT - AC; Site A-Line
[2018-05-23 05:35] LABS: WHITE BLOOD COUNT 7.3 10^3/ul (4.8-10.8)
[2018-05-23 05:35] LABS: HEMATOCRIT 20.8 % (42.0-52.0); MEAN CORPUSCULAR HEMOGLOBIN 29.8 pg (29.0-33.0); MEAN CORPUSCULAR HGB CONC 33.7 g/dl (32.0-37.0); MEAN CORPUSCULAR VOLUME 88.5 fl (82.0-101.0); MEAN PLATELET VOLUME 10.9 fl (7.4-10.4); PLATELET COUNT 141 10^3/UL (140-415); POSITIVE DIFF @See below; RED BLOOD COUNT 2.35 10^6/ul (4.70-6.10); RED CELL DISTRIBUTION WIDTH 15.6 % (11.5-14.5)
[2018-05-23 05:38] LABS: ADD MAN DIFF? YES
[2018-05-23 05:46] LABS: ALANINE AMINOTRANSFERASE 26 IU/L (13-69); ALKALINE PHOSPHATASE 34 IU/L (42-121); ANION GAP 11 (5-13); ASPARTATE AMINO TRANSFERASE 130 IU/L (15-46); BILIRUBIN,INDIRECT 0.4 mg/dl (0-1.1); BILIRUBIN,TOTAL 0.4 mg/dl (0.2-1.3); BLOOD UREA NITROGEN 24 mg/dl (7-20); CALCIUM 8.6 mg/dl (8.4-10.2); CARBON DIOXIDE 27 mmol/L (21-31); CHLORIDE 105 mmol/L (97-110); CREATININE 1.07 mg/dl (0.61-1.24); GLUCOSE 122 mg/dl (70-220); MAGNESIUM 2.2 mg/dl (1.7-2.5); POTASSIUM 3.7 mmol/L (3.5-5.1); SODIUM 143 mmol/L (135-144)
[2018-05-23 05:47] LABS: ALBUMIN 3.6 g/dl (3.3-4.9); ALBUMIN/GLOBULIN RATIO 1.63; CREATINE KINASE 883 IU/L (23-200); TOTAL PROTEIN 5.8 g/dl (6.1-8.1)
[2018-05-23 05:48] LABS: INR 1.39; PROTIME 17.2 Sec (11.9-14.9); PT RATIO 1.3
[2018-05-23 05:49] LABS: PARTIAL THROMBOPLASTIN TIME 49.9 Sec (23.0-35.0)
[2018-05-23 05:57] LABS: CK INDEX 6.2
[2018-05-23] MEDS: POTASSIUM CHLORIDE 50 ML IVPB ×3 (06:08→09:51)
[2018-05-23 07:14] LABS: ANISOCYTOSIS 1+ (0-0); BAND NEUTROPHILS #M 0.7 10^3/ul (0.0-0.6); BAND NEUTROPHILS % (M) 10 % (0-4); BURR CELLS 1+ (0-0); LYMPHOCYTES #M 0.6 10^3/ul (0.8-2.9); LYMPHOCYTES % (M) 9 % (15-51); MICROCYTOSIS 1+ (0-0); MONOCYTE #M 0.7 10^3/ul (0.3-0.9); MONOCYTES % (M) 10 % (0-11); OVALOCYTES 1+ (0-0); PLATELET ESTIMATE NORMAL; POIKILOCYTOSIS 1+ (0-0); POLYCHROMASIA 2+ (0-0); SEG NEUT #M 5.2 10^3/ul (1.6-7.5); SEGMENTED NEUTROPHILS (M) % 71 % (39-77)
[2018-05-23 07:57] LABS: IMMEDIATE SPIN CROSSMATCH 1
[2018-05-23 07:59] LABS: B-TYPE NATRIURETIC PEPTIDE 12500 PG/ML (0-125)
[2018-05-23] MEDS: BICALUTAMIDE 50 MG TAB PO (09:00)
[2018-05-23] MEDS ORDERED: VANCOMYCIN 750 MG (PMX) 250 ML IVPB (09:00)
[2018-05-23] MEDS: ASPIRIN 325 MG TAB PO (09:54)
[2018-05-23] MEDS: TAMSULOSIN (SR) 0.4 MG CAP PO ×2 (09:55→21:10)
[2018-05-23] MEDS: FAMOTIDINE 20 MG TAB PO ×2 (09:55→21:10)
[2018-05-23] MEDS: MEROPENEM 1 GM/50ML(PMX) 50 ML IVPB ×2 (09:59→21:10)
[2018-05-23] MEDS: FENTAnyl (DRIP) 1000 mcg/100mL 100 ML IV (10:08)
[2018-05-23 15:48] LABS: ADD MAN DIFF? NO
[2018-05-23 15:51] LABS: WHITE BLOOD COUNT 9.3 10^3/ul (4.8-10.8)
[2018-05-23 15:51] LABS: HEMATOCRIT 26.3 % (42.0-52.0); HEMOGLOBIN 8.8 g/dl (14.0-18.0); MEAN CORPUSCULAR HEMOGLOBIN 29.6 pg (29.0-33.0); MEAN CORPUSCULAR HGB CONC 33.5 g/dl (32.0-37.0); MEAN CORPUSCULAR VOLUME 88.6 fl (82.0-101.0); MEAN PLATELET VOLUME 10.4 fl (7.4-10.4); PLATELET COUNT 138 10^3/UL (140-415); POSITIVE DIFF @See below; RED BLOOD COUNT 2.97 10^6/ul (4.70-6.10); RED CELL DISTRIBUTION WIDTH 15.4 % (11.5-14.5)
[2018-05-23 16:08] LABS: ANION GAP 9 (5-13); BLOOD UREA NITROGEN 27 mg/dl (7-20); CALCIUM 8.5 mg/dl (8.4-10.2); CARBON DIOXIDE 26 mmol/L (21-31); CHLORIDE 104 mmol/L (97-110); CREATININE 1.02 mg/dl (0.61-1.24); GLUCOSE 98 mg/dl (70-220); POTASSIUM 4.3 mmol/L (3.5-5.1); SODIUM 139 mmol/L (135-144)
[2018-05-23] MEDS: POTASSIUM CHLORIDE 40 MEQ, CALCIUM CHLORIDE 10% 1 GM in DEXTROSE 5%-0.225% NACL 1,000 ML IV (17:38)
[2018-05-23 17:55] LABS: ANISOCYTOSIS 2+ (0-0); BAND NEUTROPHILS #M 2.7 10^3/ul (0.0-0.6); BAND NEUTROPHILS % (M) 30 % (0-4); LYMPHOCYTES % (M) 11 % (15-51); MICROCYTOSIS 2+ (0-0); MONOCYTE #M 0.4 10^3/ul (0.3-0.9); MONOCYTES % (M) 5 % (0-11); PLATELET ESTIMATE NORMAL; POIKILOCYTOSIS 1+ (0-0); POLYCHROMASIA 2+ (0-0); REACTIVE LYMPHOCYTES% (M) 1 % (0-0); SEG NEUT #M 5.2 10^3/ul (1.6-7.5); SEGMENTED NEUTROPHILS (M) % 53 % (39-77); SMUDGE%M 1 % (0-0)
[2018-05-23] MEDS: PHENYLephrine 80 MG in DEXTROSE 5% 242 ML IV (18:46)
[2018-05-23] MEDS: ATORVASTATIN 40 MG TAB PO (21:10)
[2018-05-23] MEDS: VANCOMYCIN HCL 1.25 GM in SOD CHLORIDE 0.9% 250 ML IVPB (21:40)
[2018-05-23] MEDS: ACETAMINOPHEN 325 MG TAB PO (22:56)
[2018-05-24] MEDS: ACCU-CHEK XX ×17 (00:04→16:09)
[2018-05-24] MEDS: FUROSEMIDE 20 MG INJ IV ×2 (00:06→10:39)
[2018-05-24] MEDS: FENTAnyl (DRIP) 1000 mcg/100mL 100 ML IV (03:03)
[2018-05-24] MEDS: INSULIN HUMAN REGULAR 100 UNIT in SOD CHLORIDE 0.9% 99 ML IV (03:04)
[2018-05-24 05:14] LABS: ADD MAN DIFF? NO
[2018-05-24] MEDS: POTASSIUM CHLORIDE 40 MEQ, CALCIUM CHLORIDE 10% 1 GM in DEXTROSE 5%-0.225% NACL 1,000 ML IV ×2 (05:20→11:56)
[2018-05-24 05:24] LABS: BASOPHILS % 0.3 % (0.0-2.0); EOSINOPHILS % 0.3 % (0.0-7.0); HEMATOCRIT 25.6 % (42.0-52.0); HEMOGLOBIN 8.4 g/dl (14.0-18.0); LYMPHOCYTES # 1.4 10^3/ul (0.8-2.9); LYMPHOCYTES % 12.4 % (15.0-51.0); MEAN CORPUSCULAR HEMOGLOBIN 29.2 pg (29.0-33.0); MEAN CORPUSCULAR HGB CONC 32.8 g/dl (32.0-37.0); MEAN CORPUSCULAR VOLUME 88.9 fl (82.0-101.0); MEAN PLATELET VOLUME 11.1 fl (7.4-10.4); MONOCYTE # 1.2 10^3/ul (0.3-0.9); MONOCYTES % 11.3 % (0.0-11.0); NEUTROPHIL # 8.3 10^3/ul (1.6-7.5); NEUTROPHILS % 75.2 % (39.0-77.0); PLATELET COUNT 121 10^3/UL (140-415); POSITIVE DIFF @See below; RED BLOOD COUNT 2.88 10^6/ul (4.70-6.10); RED CELL DISTRIBUTION WIDTH 15.7 % (11.5-14.5)
[2018-05-24] MEDS: ACETAMINOPHEN 325 MG TAB PO (05:37)
[2018-05-24 05:41] LABS: ALANINE AMINOTRANSFERASE 24 IU/L (13-69); ALBUMIN 3.4 g/dl (3.3-4.9); ALKALINE PHOSPHATASE 41 IU/L (42-121); ANION GAP 11 (5-13); ASPARTATE AMINO TRANSFERASE 72 IU/L (15-46); BLOOD UREA NITROGEN 29 mg/dl (7-20); CALCIUM 8.8 mg/dl (8.4-10.2); CARBON DIOXIDE 26 mmol/L (21-31); CHLORIDE 102 mmol/L (97-110); CREATININE 1.13 mg/dl (0.61-1.24); GLUCOSE 130 mg/dl (70-220); POTASSIUM 4.4 mmol/L (3.5-5.1); SODIUM 139 mmol/L (135-144)
[2018-05-24 06:05] LABS: INR 1.23; PROTIME 15.6 Sec (11.9-14.9); PT RATIO 1.2
[2018-05-24 06:06] LABS: PARTIAL THROMBOPLASTIN TIME 39.2 Sec (23.0-35.0)
[2018-05-24 07:17] LABS: MAGNESIUM 2.1 mg/dl (1.7-2.5)
[2018-05-24] MEDS: PROPOFOL 100 ML IV (07:30)
[2018-05-24] MEDS: ASPIRIN 325 MG TAB PO (08:35)
[2018-05-24] MEDS: FAMOTIDINE 20 MG TAB PO ×2 (08:35→21:00)
[2018-05-24] MEDS: MEROPENEM 1 GM/50ML(PMX) 50 ML IVPB ×2 (08:35→21:17)
[2018-05-24] MEDS: TAMSULOSIN (SR) 0.4 MG CAP PO ×2 (08:51→21:00)
[2018-05-24] MEDS: BICALUTAMIDE 50 MG TAB PO (08:51)
[2018-05-24 10:06] LABS: AADO2 Arterial 84.1 mmHg (7.0-24.0); Arterial Base Excess 0.4 mmol/L (-3.0-3); Arterial Blood Gas Oxygen Sat 96.4 mmHG (95.0-100.0); Arterial COHb 0.3 % (0.0-3.0); Arterial HCO3 23.9 mmol/L (22.0-26.0); Arterial MetHb 0.1 % (0.0-1.5); Arterial pCO2 33.9 mmhg (35-45); MODE VENT - AC; Site Right Brachial
[2018-05-24] MEDS: HYDROmorphONE 0.5 MG/0.5 ML SYG IV (11:58)
[2018-05-24 13:47] LABS: AADO2 Arterial 82.2 mmHg (7.0-24.0); Arterial Blood Gas Oxygen Sat 96.5 mmHG (95.0-100.0); Arterial COHb 0.3 % (0.0-3.0); Arterial Fraction of Oxyhgb 95.9 % (93.0-99.0); Arterial HCO3 24.5 mmol/L (22.0-26.0); Arterial MetHb 0.3 % (0.0-1.5); Arterial pCO2 34.6 mmhg (35-45); Blood Gas PS 10; MODE VENT - CPAP; Site Right Brachial
[2018-05-24] MEDS: morphine 2 MG INJ IV ×2 (15:29→20:24)
[2018-05-24] MEDS ORDERED: DEXTROSE 50% 50 ML SYRINGE IV ×2 (17:00)
[2018-05-24] MEDS ORDERED: GLUCOSE GEL 15 GRAM TUBE BUCCAL (17:00)
[2018-05-24] MEDS ORDERED: GLUCAGON 1 MG INJ IM (17:00)
[2018-05-24] MEDS ORDERED: GLUCOSE GEL 15 GRAM TUBE PO ×2 (17:00)
[2018-05-24] MEDS: INSULIN ASPART [NOVOLOG] 3 ML PEN SC ×2 (18:47→21:43)
[2018-05-24] MEDS: METOPROLOL 25 MG TAB PO ×2 (21:00→22:50)
[2018-05-24] MEDS: LISINOPRIL 10 MG TAB PO ×3 (21:00→22:57)
[2018-05-24] MEDS: ATORVASTATIN 40 MG TAB PO (21:00)
[2018-05-24] MEDS: VANCOMYCIN HCL 1.25 GM in SOD CHLORIDE 0.9% 250 ML IVPB (21:17)
[2018-05-24] MEDS: ACETAMINOPHEN 650 MG SUPP PR (22:49)
[2018-05-24] MEDS: NITROGLYCERIN (SL) 0.4 MG TAB SL (23:22)
[2018-05-25] MEDS: INSULIN ASPART [NOVOLOG] 3 ML PEN SC ×6 (00:54→20:40)
[2018-05-25] MEDS: IPRATROPIUM (NEB) 0.5 MG/2.5 ML AMP HHN (03:03)
[2018-05-25] MEDS: LEVALBUTEROL (NEB) 0.63 MG/3 ML AMP HHN (03:03)
[2018-05-25] MEDS: POTASSIUM CHLORIDE 40 MEQ, CALCIUM CHLORIDE 10% 1 GM in DEXTROSE 5%-0.225% NACL 1,000 ML IV ×2 (04:54→20:45)
[2018-05-25 05:23] LABS: AADO2 Arterial 96.6 mmHg (7.0-24.0); Allen Test ACCEPTAB; Arterial Base Excess 1.1 mmol/L (-3.0-3); Arterial COHb 0.3 % (0.0-3.0); Arterial Fraction of Oxyhgb 94.4 % (93.0-99.0); Arterial HCO3 24.4 mmol/L (22.0-26.0); Arterial MetHb 0.3 % (0.0-1.5); Arterial pCO2 33.6 mmhg (35-45); MODE NASAL CANNULA; Site Right Radial
[2018-05-25 05:44] LABS: ADD MAN DIFF? NO
[2018-05-25 05:47] LABS: WHITE BLOOD COUNT 12.4 10^3/ul (4.8-10.8)
[2018-05-25 05:47] LABS: BASOPHILS % 0.1 % (0.0-2.0); EOSINOPHILS # 0.1 10^3/ul (0.0-0.5); EOSINOPHILS % 0.6 % (0.0-7.0); HEMATOCRIT 27.1 % (42.0-52.0); HEMOGLOBIN 8.8 g/dl (14.0-18.0); LYMPHOCYTES # 1.4 10^3/ul (0.8-2.9); LYMPHOCYTES % 10.9 % (15.0-51.0); MEAN CORPUSCULAR HEMOGLOBIN 29.3 pg (29.0-33.0); MEAN CORPUSCULAR HGB CONC 32.5 g/dl (32.0-37.0); MEAN CORPUSCULAR VOLUME 90.3 fl (82.0-101.0); MEAN PLATELET VOLUME 11.3 fl (7.4-10.4); MONOCYTE # 0.9 10^3/ul (0.3-0.9); MONOCYTES % 7.5 % (0.0-11.0); NEUTROPHILS % 80.3 % (39.0-77.0); PLATELET COUNT 131 10^3/UL (140-415); POSITIVE DIFF @See below; RED CELL DISTRIBUTION WIDTH 15.2 % (11.5-14.5)
[2018-05-25 06:14] LABS: ANION GAP 8 (5-13); BLOOD UREA NITROGEN 31 mg/dl (7-20); CALCIUM 9.5 mg/dl (8.4-10.2); CARBON DIOXIDE 27 mmol/L (21-31); CHLORIDE 103 mmol/L (97-110); CREATININE 0.84 mg/dl (0.61-1.24); GLUCOSE 139 mg/dl (70-220); POTASSIUM 4.1 mmol/L (3.5-5.1); SODIUM 138 mmol/L (135-144)
[2018-05-25 06:16] LABS: MAGNESIUM 2.1 mg/dl (1.7-2.5)
[2018-05-25] MEDS: morphine 2 MG INJ IV (08:17)
[2018-05-25] MEDS: ASPIRIN 325 MG TAB PO (09:53)
[2018-05-25] MEDS: FUROSEMIDE 20 MG INJ IV ×2 (09:53→11:44)
[2018-05-25] MEDS: MEROPENEM 1 GM/50ML(PMX) 50 ML IVPB ×2 (09:54→20:37)
[2018-05-25] MEDS: CLOPIDOGREL 75 MG TAB PO (09:54)
[2018-05-25] MEDS: LISINOPRIL 10 MG TAB PO ×2 (09:55→20:38)
[2018-05-25] MEDS: METOPROLOL 25 MG TAB PO ×2 (09:55→20:39)
[2018-05-25] MEDS: TAMSULOSIN (SR) 0.4 MG CAP PO ×2 (09:56→20:37)
[2018-05-25] MEDS: FAMOTIDINE 20 MG TAB PO ×2 (09:56→20:38)
[2018-05-25] MEDS: ENOXAPARIN 40 MG/0.4 ML SYG SC (10:04)
[2018-05-25] MEDS: BICALUTAMIDE 50 MG TAB PO (11:27)
[2018-05-25] MEDS: ATORVASTATIN 40 MG TAB PO (20:38)
[2018-05-25 20:41] LABS: VANCOMYCIN,TROUGH 10.5 ug/ml (10.0-20.0)
[2018-05-25] MEDS: VANCOMYCIN HCL 1.25 GM in SOD CHLORIDE 0.9% 250 ML IVPB (21:39)
[2018-05-26] MEDS: ZOLPIDEM 5 MG TAB PO (00:28)
[2018-05-26] MEDS: ACETAMINOPHEN 325 MG TAB PO (01:17)
[2018-05-26] MEDS: ACCU-CHEK XX (02:39)
[2018-05-26 05:37] LABS: ADD MAN DIFF? NO
[2018-05-26 05:44] LABS: BASOPHILS % 0.2 % (0.0-2.0); EOSINOPHILS # 0.2 10^3/ul (0.0-0.5); EOSINOPHILS % 1.5 % (0.0-7.0); HEMOGLOBIN 8.7 g/dl (14.0-18.0); LYMPHOCYTES # 1.4 10^3/ul (0.8-2.9); LYMPHOCYTES % 12.5 % (15.0-51.0); MEAN CORPUSCULAR HEMOGLOBIN 29.5 pg (29.0-33.0); MEAN CORPUSCULAR HGB CONC 33.5 g/dl (32.0-37.0); MEAN CORPUSCULAR VOLUME 88.1 fl (82.0-101.0); NEUTROPHIL # 8.4 10^3/ul (1.6-7.5); NEUTROPHILS % 76.3 % (39.0-77.0); PLATELET COUNT 162 10^3/UL (140-415); RED BLOOD COUNT 2.95 10^6/ul (4.70-6.10); RED CELL DISTRIBUTION WIDTH 14.7 % (11.5-14.5)
[2018-05-26 05:44] LABS: WHITE BLOOD COUNT 10.9 10^3/ul (4.8-10.8)
[2018-05-26 06:04] LABS: ANION GAP 7 (5-13); BLOOD UREA NITROGEN 26 mg/dl (7-20); CALCIUM 9.5 mg/dl (8.4-10.2); CARBON DIOXIDE 28 mmol/L (21-31); CHLORIDE 102 mmol/L (97-110); CREATININE 0.79 mg/dl (0.61-1.24); GLUCOSE 139 mg/dl (70-220); PHOSPHORUS 3.5 mg/dl (2.5-4.9); POTASSIUM 3.8 mmol/L (3.5-5.1); SODIUM 137 mmol/L (135-144)
[2018-05-26] MEDS: INSULIN ASPART [NOVOLOG] 3 ML PEN SC ×4 (07:35→21:00)
[2018-05-26] MEDS ORDERED: VANCOMYCIN 1 GM 250 ML IVPB (09:00)
[2018-05-26] MEDS: MEROPENEM 1 GM/50ML(PMX) 50 ML IVPB (09:42)
[2018-05-26] MEDS: ASPIRIN 325 MG TAB PO (09:42)
[2018-05-26] MEDS: TAMSULOSIN (SR) 0.4 MG CAP PO ×2 (09:43→21:29)
[2018-05-26] MEDS: CLOPIDOGREL 75 MG TAB PO (09:43)
[2018-05-26] MEDS: LISINOPRIL 10 MG TAB PO ×2 (09:43→21:30)
[2018-05-26] MEDS: METOPROLOL 25 MG TAB PO ×2 (09:43→21:29)
[2018-05-26] MEDS: FAMOTIDINE 20 MG TAB PO ×2 (09:43→21:29)
[2018-05-26] MEDS: BICALUTAMIDE 50 MG TAB PO (09:45)
[2018-05-26] MEDS: ENOXAPARIN 40 MG/0.4 ML SYG SC (10:10)
[2018-05-26] MEDS: morphine 2 MG INJ IV ×2 (10:56→17:59)
[2018-05-26] MEDS: ERTAPENEM SODIUM 1 GM in SOD CHLORIDE 0.9% 100 ML IVPB (16:23)
[2018-05-26] MEDS: FUROSEMIDE 40 MG INJ IV (16:23)
[2018-05-26] MEDS ORDERED: VANCOMYCIN HCL 1.5 GM in SOD CHLORIDE 0.9% 250 ML IVPB (21:00)
[2018-05-26] MEDS: ATORVASTATIN 40 MG TAB PO (21:29)
[2018-05-27] MEDS: OXYCODONE/ACETAMINOPHEN (5/325) TAB PO (00:49)
[2018-05-27] MEDS: ACCU-CHEK XX (02:00)
[2018-05-27 06:30] LABS: ADD MAN DIFF? NO
[2018-05-27 06:32] LABS: BASOPHILS % 0.3 % (0.0-2.0); EOSINOPHILS # 0.4 10^3/ul (0.0-0.5); EOSINOPHILS % 3.6 % (0.0-7.0); LYMPHOCYTES # 1.4 10^3/ul (0.8-2.9); LYMPHOCYTES % 14.6 % (15.0-51.0); MEAN CORPUSCULAR HEMOGLOBIN 29.7 pg (29.0-33.0); MEAN CORPUSCULAR HGB CONC 33.3 g/dl (32.0-37.0); MEAN CORPUSCULAR VOLUME 89.1 fl (82.0-101.0); MEAN PLATELET VOLUME 10.5 fl (7.4-10.4); MONOCYTE # 1.1 10^3/ul (0.3-0.9); MONOCYTES % 11.7 % (0.0-11.0); NEUTROPHIL # 6.6 10^3/ul (1.6-7.5); NEUTROPHILS % 69.1 % (39.0-77.0); PLATELET COUNT 219 10^3/UL (140-415); RED BLOOD COUNT 3.03 10^6/ul (4.70-6.10); RED CELL DISTRIBUTION WIDTH 14.9 % (11.5-14.5)
[2018-05-27 06:32] LABS: WHITE BLOOD COUNT 9.6 10^3/ul (4.8-10.8)
[2018-05-27 06:53] LABS: ANION GAP 9 (5-13); BLOOD UREA NITROGEN 33 mg/dl (7-20); CALCIUM 8.9 mg/dl (8.4-10.2); CARBON DIOXIDE 32 mmol/L (21-31); CHLORIDE 97 mmol/L (97-110); CREATININE 0.85 mg/dl (0.61-1.24); GLUCOSE 113 mg/dl (70-220); POTASSIUM 3.5 mmol/L (3.5-5.1); SODIUM 138 mmol/L (135-144)
[2018-05-27] MEDS: METOPROLOL 25 MG TAB PO ×2 (08:18→22:01)
[2018-05-27] MEDS: TAMSULOSIN (SR) 0.4 MG CAP PO ×2 (08:18→22:01)
[2018-05-27] MEDS: FAMOTIDINE 20 MG TAB PO ×2 (08:18→22:03)
[2018-05-27] MEDS: CLOPIDOGREL 75 MG TAB PO (08:18)
[2018-05-27] MEDS: ASPIRIN 325 MG TAB PO (08:18)
[2018-05-27] MEDS: LISINOPRIL 10 MG TAB PO ×2 (08:19→23:00)
[2018-05-27] MEDS: FUROSEMIDE 40 MG INJ IV (08:19)
[2018-05-27] MEDS: ENOXAPARIN 40 MG/0.4 ML SYG SC (08:51)
[2018-05-27] MEDS: INSULIN ASPART [NOVOLOG] 3 ML PEN SC ×4 (08:51→21:00)
[2018-05-27] MEDS: BICALUTAMIDE 50 MG TAB PO (10:56)
[2018-05-27] MEDS: ERTAPENEM SODIUM 1 GM in SOD CHLORIDE 0.9% 100 ML IVPB (15:29)
[2018-05-27] MEDS: ATORVASTATIN 40 MG TAB PO (22:00)
[2018-05-28] MEDS: ACCU-CHEK XX ×2 (02:00→21:15)
[2018-05-28 07:03] LABS: ADD MAN DIFF? NO
[2018-05-28 07:13] LABS: BASOPHILS % 0.3 % (0.0-2.0); EOSINOPHILS # 0.4 10^3/ul (0.0-0.5); EOSINOPHILS % 4.1 % (0.0-7.0); HEMATOCRIT 27.7 % (42.0-52.0); HEMOGLOBIN 9.2 g/dl (14.0-18.0); LYMPHOCYTES # 1.8 10^3/ul (0.8-2.9); LYMPHOCYTES % 18.5 % (15.0-51.0); MEAN CORPUSCULAR HEMOGLOBIN 29.7 pg (29.0-33.0); MEAN CORPUSCULAR HGB CONC 33.2 g/dl (32.0-37.0); MEAN CORPUSCULAR VOLUME 89.4 fl (82.0-101.0); MEAN PLATELET VOLUME 10.5 fl (7.4-10.4); MONOCYTE # 1.2 10^3/ul (0.3-0.9); NEUTROPHIL # 6.2 10^3/ul (1.6-7.5); NEUTROPHILS % 63.9 % (39.0-77.0); PLATELET COUNT 277 10^3/UL (140-415); RED CELL DISTRIBUTION WIDTH 14.7 % (11.5-14.5)
[2018-05-28 07:13] LABS: WHITE BLOOD COUNT 9.6 10^3/ul (4.8-10.8)
[2018-05-28 07:35] LABS: ANION GAP 7 (5-13); BLOOD UREA NITROGEN 33 mg/dl (7-20); CALCIUM 8.2 mg/dl (8.4-10.2); CARBON DIOXIDE 31 mmol/L (21-31); CHLORIDE 99 mmol/L (97-110); CREATININE 0.81 mg/dl (0.61-1.24); GLUCOSE 119 mg/dl (70-220); MAGNESIUM 2.1 mg/dl (1.7-2.5); PHOSPHORUS 3.2 mg/dl (2.5-4.9); POTASSIUM 3.9 mmol/L (3.5-5.1); SODIUM 137 mmol/L (135-144)
[2018-05-28] MEDS: INSULIN ASPART [NOVOLOG] 3 ML PEN SC ×4 (07:53→21:00)
[2018-05-28] MEDS: ASPIRIN 325 MG TAB PO (08:06)
[2018-05-28] MEDS: METOPROLOL 25 MG TAB PO ×2 (08:07→21:09)
[2018-05-28] MEDS: FAMOTIDINE 20 MG TAB PO ×2 (08:07→21:08)
[2018-05-28] MEDS: TAMSULOSIN (SR) 0.4 MG CAP PO ×2 (08:07→21:08)
[2018-05-28] MEDS: CLOPIDOGREL 75 MG TAB PO (08:07)
[2018-05-28] MEDS: LISINOPRIL 10 MG TAB PO ×2 (08:08→21:08)
[2018-05-28] MEDS: FUROSEMIDE 40 MG INJ IV (08:08)
[2018-05-28] MEDS: BICALUTAMIDE 50 MG TAB PO (08:42)
[2018-05-28] MEDS: ENOXAPARIN 40 MG/0.4 ML SYG SC (08:43)
[2018-05-28] MEDS: ERTAPENEM SODIUM 1 GM in SOD CHLORIDE 0.9% 100 ML IVPB (15:02)
[2018-05-28] MEDS: ATORVASTATIN 40 MG TAB PO (21:08)
[2018-05-29 06:40] LABS: ADD MAN DIFF? NO
[2018-05-29 06:45] LABS: BASOPHIL # 0.1 10^3/ul (0.0-0.1); BASOPHILS % 0.5 % (0.0-2.0); EOSINOPHILS # 0.4 10^3/ul (0.0-0.5); HEMATOCRIT 28.3 % (42.0-52.0); HEMOGLOBIN 9.3 g/dl (14.0-18.0); LYMPHOCYTES # 1.8 10^3/ul (0.8-2.9); MEAN CORPUSCULAR HEMOGLOBIN 29.4 pg (29.0-33.0); MEAN CORPUSCULAR HGB CONC 32.9 g/dl (32.0-37.0); MEAN CORPUSCULAR VOLUME 89.6 fl (82.0-101.0); MEAN PLATELET VOLUME 10.3 fl (7.4-10.4); MONOCYTE # 1.2 10^3/ul (0.3-0.9); MONOCYTES % 11.5 % (0.0-11.0); NEUTROPHIL # 6.8 10^3/ul (1.6-7.5); NEUTROPHILS % 65.3 % (39.0-77.0); PLATELET COUNT 336 10^3/UL (140-415); RED BLOOD COUNT 3.16 10^6/ul (4.70-6.10); RED CELL DISTRIBUTION WIDTH 14.7 % (11.5-14.5)
[2018-05-29 06:45] LABS: WHITE BLOOD COUNT 10.4 10^3/ul (4.8-10.8)
[2018-05-29 07:32] LABS: ANION GAP 8 (5-13); BLOOD UREA NITROGEN 32 mg/dl (7-20); CALCIUM 8.3 mg/dl (8.4-10.2); CARBON DIOXIDE 32 mmol/L (21-31); CHLORIDE 99 mmol/L (97-110); GLUCOSE 121 mg/dl (70-220); MAGNESIUM 2.3 mg/dl (1.7-2.5); PHOSPHORUS 3.3 mg/dl (2.5-4.9); POTASSIUM 3.9 mmol/L (3.5-5.1); SODIUM 139 mmol/L (135-144)
[2018-05-29] MEDS: INSULIN ASPART [NOVOLOG] 3 ML PEN SC ×4 (07:51→20:54)
[2018-05-29] MEDS: TAMSULOSIN (SR) 0.4 MG CAP PO ×2 (09:06→20:38)
[2018-05-29] MEDS: FAMOTIDINE 20 MG TAB PO ×2 (09:06→20:38)
[2018-05-29] MEDS: ASPIRIN 325 MG TAB PO (09:06)
[2018-05-29] MEDS: CLOPIDOGREL 75 MG TAB PO (09:06)
[2018-05-29] MEDS: FUROSEMIDE 40 MG INJ IV (09:07)
[2018-05-29] MEDS: LISINOPRIL 10 MG TAB PO ×2 (09:07→20:38)
[2018-05-29] MEDS: METOPROLOL 25 MG TAB PO ×2 (09:07→20:38)
[2018-05-29] MEDS: BICALUTAMIDE 50 MG TAB PO (09:24)
[2018-05-29] MEDS: ENOXAPARIN 40 MG/0.4 ML SYG SC (09:24)
[2018-05-29] MEDS: ERTAPENEM SODIUM 1 GM in SOD CHLORIDE 0.9% 100 ML IVPB (14:48)
[2018-05-29] MEDS: ATORVASTATIN 40 MG TAB PO (20:37)
[2018-05-30] MEDS: ACCU-CHEK XX (02:00)
[2018-05-30] MEDS: LEVOFLOXACIN 500 MG TAB PO (05:02)
[2018-05-30] MEDS: INSULIN ASPART [NOVOLOG] 3 ML PEN SC ×4 (07:55→20:40)
[2018-05-30] MEDS: ASPIRIN 325 MG TAB PO (08:21)
[2018-05-30] MEDS: CLOPIDOGREL 75 MG TAB PO (08:24)
[2018-05-30] MEDS: FAMOTIDINE 20 MG TAB PO ×2 (08:24→20:20)
[2018-05-30] MEDS: TAMSULOSIN (SR) 0.4 MG CAP PO ×2 (08:25→20:20)
[2018-05-30] MEDS: BICALUTAMIDE 50 MG TAB PO (08:32)
[2018-05-30] MEDS: ENOXAPARIN 40 MG/0.4 ML SYG SC (08:32)
[2018-05-30 08:36] LABS: ADD MAN DIFF? NO
[2018-05-30] MEDS: METOPROLOL 25 MG TAB PO ×2 (08:45→20:21)
[2018-05-30] MEDS: LISINOPRIL 10 MG TAB PO (08:46)
[2018-05-30 08:51] LABS: BASOPHIL # 0.1 10^3/ul (0.0-0.1); BASOPHILS % 0.5 % (0.0-2.0); EOSINOPHILS # 0.5 10^3/ul (0.0-0.5); EOSINOPHILS % 4.4 % (0.0-7.0); HEMATOCRIT 28.6 % (42.0-52.0); HEMOGLOBIN 9.2 g/dl (14.0-18.0); LYMPHOCYTES # 1.8 10^3/ul (0.8-2.9); LYMPHOCYTES % 16.6 % (15.0-51.0); MEAN CORPUSCULAR HEMOGLOBIN 28.6 pg (29.0-33.0); MEAN CORPUSCULAR HGB CONC 32.2 g/dl (32.0-37.0); MEAN CORPUSCULAR VOLUME 88.8 fl (82.0-101.0); MEAN PLATELET VOLUME 10.6 fl (7.4-10.4); MONOCYTE # 1.4 10^3/ul (0.3-0.9); MONOCYTES % 12.3 % (0.0-11.0); NEUTROPHIL # 7.1 10^3/ul (1.6-7.5); NEUTROPHILS % 64.4 % (39.0-77.0); PLATELET COUNT 393 10^3/UL (140-415); RED BLOOD COUNT 3.22 10^6/ul (4.70-6.10); RED CELL DISTRIBUTION WIDTH 14.9 % (11.5-14.5)
[2018-05-30] MEDS ORDERED: FUROSEMIDE 40 MG TAB PO (09:00)
[2018-05-30 10:14] LABS: ANION GAP 8 (5-13); BLOOD UREA NITROGEN 34 mg/dl (7-20); CALCIUM 8.2 mg/dl (8.4-10.2); CARBON DIOXIDE 30 mmol/L (21-31); CHLORIDE 98 mmol/L (97-110); CREATININE 0.84 mg/dl (0.61-1.24); GLUCOSE 113 mg/dl (70-220); MAGNESIUM 2.3 mg/dl (1.7-2.5); PHOSPHORUS 3.6 mg/dl (2.5-4.9); SODIUM 136 mmol/L (135-144)
[2018-05-30] MEDS: BISACODYL (EC) 5 MG TAB PO (20:18)
[2018-05-30] MEDS: ACETAMINOPHEN 325 MG TAB PO (20:19)
[2018-05-30] MEDS: LISINOPRIL 5 MG TAB PO (20:20)
[2018-05-30] MEDS: ATORVASTATIN 40 MG TAB PO (20:20)
[2018-05-31] MEDS: ACCU-CHEK XX (02:00)
[2018-05-31] MEDS: LEVOFLOXACIN 500 MG TAB PO (05:27)
[2018-05-31 06:47] LABS: ADD MAN DIFF? NO
[2018-05-31 06:52] LABS: BASOPHIL # 0.1 10^3/ul (0.0-0.1); BASOPHILS % 0.5 % (0.0-2.0); EOSINOPHILS # 0.5 10^3/ul (0.0-0.5); EOSINOPHILS % 4.8 % (0.0-7.0); HEMOGLOBIN 9.1 g/dl (14.0-18.0); LYMPHOCYTES # 1.7 10^3/ul (0.8-2.9); LYMPHOCYTES % 15.7 % (15.0-51.0); MEAN CORPUSCULAR HEMOGLOBIN 29.3 pg (29.0-33.0); MEAN CORPUSCULAR HGB CONC 32.5 g/dl (32.0-37.0); MEAN PLATELET VOLUME 10.3 fl (7.4-10.4); MONOCYTE # 1.2 10^3/ul (0.3-0.9); MONOCYTES % 11.1 % (0.0-11.0); NEUTROPHIL # 7.2 10^3/ul (1.6-7.5); PLATELET COUNT 378 10^3/UL (140-415); RED BLOOD COUNT 3.11 10^6/ul (4.70-6.10); RED CELL DISTRIBUTION WIDTH 14.7 % (11.5-14.5)
[2018-05-31 06:52] LABS: WHITE BLOOD COUNT 10.9 10^3/ul (4.8-10.8)
[2018-05-31] MEDS: INSULIN ASPART [NOVOLOG] 3 ML PEN SC ×4 (07:55→20:23)
[2018-05-31] MEDS: ASPIRIN 325 MG TAB PO (08:10)
[2018-05-31] MEDS: CLOPIDOGREL 75 MG TAB PO (08:10)
[2018-05-31] MEDS: FAMOTIDINE 20 MG TAB PO ×2 (08:11→20:16)
[2018-05-31] MEDS: TAMSULOSIN (SR) 0.4 MG CAP PO ×2 (08:11→20:16)
[2018-05-31] MEDS: METOPROLOL 25 MG TAB PO ×2 (08:14→20:20)
[2018-05-31] MEDS: LISINOPRIL 5 MG TAB PO ×2 (08:16→20:20)
[2018-05-31] MEDS: BICALUTAMIDE 50 MG TAB PO (08:28)
[2018-05-31] MEDS: ENOXAPARIN 40 MG/0.4 ML SYG SC (08:35)
[2018-05-31] MEDS: ATORVASTATIN 40 MG TAB PO (20:16)
[2018-06-01] MEDS: ACCU-CHEK XX (02:00)
[2018-06-01] MEDS: LEVOFLOXACIN 500 MG TAB PO (06:10)
[2018-06-01] MEDS: INSULIN ASPART [NOVOLOG] 3 ML PEN SC ×4 (07:55→21:00)
[2018-06-01] MEDS: METOPROLOL 25 MG TAB PO ×2 (09:42→21:21)
[2018-06-01] MEDS: CLOPIDOGREL 75 MG TAB PO (09:45)
[2018-06-01] MEDS: ASPIRIN 325 MG TAB PO (09:45)
[2018-06-01] MEDS: FAMOTIDINE 20 MG TAB PO ×2 (09:45→21:20)
[2018-06-01] MEDS: TAMSULOSIN (SR) 0.4 MG CAP PO ×2 (09:45→21:20)
[2018-06-01] MEDS: ENOXAPARIN 40 MG/0.4 ML SYG SC (09:47)
[2018-06-01] MEDS: BICALUTAMIDE 50 MG TAB PO (09:47)
[2018-06-01] MEDS: LISINOPRIL 5 MG TAB PO ×2 (09:49→21:21)
[2018-06-01 10:30] LABS: ADD MAN DIFF? NO
[2018-06-01 10:32] LABS: BASOPHIL # 0.1 10^3/ul (0.0-0.1); BASOPHILS % 0.5 % (0.0-2.0); EOSINOPHILS # 0.5 10^3/ul (0.0-0.5); EOSINOPHILS % 4.4 % (0.0-7.0); HEMATOCRIT 29.2 % (42.0-52.0); HEMOGLOBIN 9.3 g/dl (14.0-18.0); LYMPHOCYTES # 1.5 10^3/ul (0.8-2.9); LYMPHOCYTES % 13.7 % (15.0-51.0); MEAN CORPUSCULAR HGB CONC 31.8 g/dl (32.0-37.0); MEAN PLATELET VOLUME 10.4 fl (7.4-10.4); MONOCYTE # 0.8 10^3/ul (0.3-0.9); MONOCYTES % 7.5 % (0.0-11.0); NEUTROPHIL # 7.9 10^3/ul (1.6-7.5); NEUTROPHILS % 72.2 % (39.0-77.0); PLATELET COUNT 374 10^3/UL (140-415); RED BLOOD COUNT 3.21 10^6/ul (4.70-6.10); RED CELL DISTRIBUTION WIDTH 14.7 % (11.5-14.5)
[2018-06-01] MEDS: ATORVASTATIN 40 MG TAB PO (21:20)
[2018-06-02] MEDS: ACCU-CHEK XX (02:00)
[2018-06-02] MEDS: LEVOFLOXACIN 500 MG TAB PO (06:27)
[2018-06-02 07:16] LABS: ADD MAN DIFF? NO
[2018-06-02 07:25] LABS: BASOPHIL # 0.1 10^3/ul (0.0-0.1); BASOPHILS % 0.5 % (0.0-2.0); EOSINOPHILS # 0.5 10^3/ul (0.0-0.5); EOSINOPHILS % 4.6 % (0.0-7.0); HEMATOCRIT 27.7 % (42.0-52.0); HEMOGLOBIN 8.9 g/dl (14.0-18.0); LYMPHOCYTES % 19.2 % (15.0-51.0); MEAN CORPUSCULAR HEMOGLOBIN 29.4 pg (29.0-33.0); MEAN CORPUSCULAR HGB CONC 32.1 g/dl (32.0-37.0); MEAN CORPUSCULAR VOLUME 91.4 fl (82.0-101.0); MEAN PLATELET VOLUME 10.5 fl (7.4-10.4); MONOCYTES % 9.3 % (0.0-11.0); NEUTROPHIL # 6.9 10^3/ul (1.6-7.5); NEUTROPHILS % 65.1 % (39.0-77.0); PLATELET COUNT 330 10^3/UL (140-415); RED BLOOD COUNT 3.03 10^6/ul (4.70-6.10); RED CELL DISTRIBUTION WIDTH 14.6 % (11.5-14.5)
[2018-06-02 07:25] LABS: WHITE BLOOD COUNT 10.6 10^3/ul (4.8-10.8)
[2018-06-02] MEDS: INSULIN ASPART [NOVOLOG] 3 ML PEN SC ×2 (07:55→11:42)
[2018-06-02] MEDS: BICALUTAMIDE 50 MG TAB PO (09:01)
[2018-06-02] MEDS: FAMOTIDINE 20 MG TAB PO (09:02)
[2018-06-02] MEDS: CLOPIDOGREL 75 MG TAB PO (09:02)
[2018-06-02] MEDS: ENOXAPARIN 40 MG/0.4 ML SYG SC (09:02)
[2018-06-02] MEDS: METOPROLOL 25 MG TAB PO (09:04)
[2018-06-02] MEDS: ASPIRIN 325 MG TAB PO (09:04)
[2018-06-02] MEDS: TAMSULOSIN (SR) 0.4 MG CAP PO (09:04)
[2018-06-02] MEDS: LISINOPRIL 5 MG TAB PO (13:52)
== END 2018-06-02 17:40 | disposition home health service (06) | DRG 233 ==
LOC: ICU 05-22 00:50 → TEL 05-27 03:25 → E/R 00:09 → TEL 01:24
PROC: 4A023N7 Measurement of Cardiac Sampling and Pressure, Left Heart, Percutaneous Approach (ICD-10-PCS; 2018-05-22 09:30)
PROC: 5A02210 Assistance with Cardiac Output using Balloon Pump, Continuous (ICD-10-PCS; 2018-05-22 09:30)
PROC: B211YZZ Fluoroscopy of Multiple Coronary Arteries using Other Contrast (ICD-10-PCS; 2018-05-22 09:30)
PROC: 021209W Bypass Coronary Artery, Three Arteries from Aorta with Autologous Venous Tissue, Open Approach (ICD-10-PCS; principal; 2018-05-22 09:33)
PROC: 02100Z9 Bypass Coronary Artery, One Artery from Left Internal Mammary, Open Approach (ICD-10-PCS; 2018-05-22 09:33)
PROC: 06BQ4ZZ Excision of Left Saphenous Vein, Percutaneous Endoscopic Approach (ICD-10-PCS; 2018-05-22 09:33)
PROC: 5A1221Z Performance of Cardiac Output, Continuous (ICD-10-PCS; 2018-05-22 09:33)
PROC: 30233K1 Transfusion of Nonautologous Frozen Plasma into Peripheral Vein, Percutaneous Approach (ICD-10-PCS; 2018-05-22 09:33)
PROC: 30233N1 Transfusion of Nonautologous Red Blood Cells into Peripheral Vein, Percutaneous Approach (ICD-10-PCS; 2018-05-22 09:33)
PROC: 30233R1 Transfusion of Nonautologous Platelets into Peripheral Vein, Percutaneous Approach (ICD-10-PCS; 2018-05-22 09:33)
DX: I21.4 Non-ST elevation (NSTEMI) myocardial infarction (principal); I50.21 Acute systolic (congestive) heart failure; J96.01 Acute respiratory failure with hypoxia; R65.21 Severe sepsis with septic shock; A41.59 Other Gram-negative sepsis; N39.0 Urinary tract infection, site not specified; I25.810 Atherosclerosis of coronary artery bypass graft(s) without angina pectoris; D62 Acute posthemorrhagic anemia; I11.0 Hypertensive heart disease with heart failure; R33.9 Retention of urine, unspecified; E78.5 Hyperlipidemia, unspecified; C61 Malignant neoplasm of prostate; I25.5 Ischemic cardiomyopathy
CPT/HCPCS: 36415; 36430; 36592; 36600; 71045; 71250; 76604; 80048; 80053; 80202; 81001; 82550; 82553; 82803; 82962; 83036; 83605; 83735; 83880; 84100; 84443; 84484; 85025; 85610; 85730; 86644; 86850; 86900; 86901; 86920; 87040-91; 87070; 87081; 87086; 89220; 92526; 92610; 93005; 93308; 93312; 93458; 94003; 94664; 94770; 96374; 97110; 97116; 97162; 97530; 99291-25